=== PATIENT | female | born 1955 | race Caucasian/White ===

== ENCOUNTER 2020-12-05 14:59 | Outpatient (CLI) | payer OTHER, SELFPAY ==
[2020-12-05 15:58] LABS: #Basophils 0.1 10x3/uL (0.0-0.2); #Eosinphils 0.1 10x3/uL (0.0-0.5); #Monocytes 0.5 10x3/uL (0.0-1.1); #Neutrophils 2.4 10x3/uL (1.5-8.4); %Basophils 1.2 % (0.0-2.0); %Eosinophils 1.8 % (0.0-6.0); %Lymphocytes 37.2 % (18.0-47.0); %Monocytes 11.1 % (0.0-10.0); %Neutrophils 48.5 % (40.0-75.0); Hemoglobin 11.1 g/dL (12.0-15.5); Mean Corpuscular HGB CONC 32.2 g/dL (32.0-36.0); Mean Corpuscular Hemoglobin 28.5 pg (27.0-33.0); Mean Corpuscular Volume 88.5 fl (81.6-98.3); Mean Platelet Volume 9.9 fl (7.4-10.4); Platelet Count 355 10x3/uL (150-450); RBC Distribution Width 14.3 % (11.5-14.5); White Blood Cell (WBC) Count 4.9 10x3/uL (3.5-10.5)
[2020-12-05 16:07] LABS: Anion Gap 12 mmol/L (10-20); BUN (Urea Nitrogen) 24 mg/dL (9.8-20.1); Calc. Creatinine Clearance 0 mL/min (70-130); Calcium 9.8 mg/dL (7.8-10.44); Carbon Dioxide 24 mmol/L (23-31); Chloride 106 mmol/L (98-107); Glucose 124 mg/dL (80-115); Potassium 4.1 mmol/L (3.5-5.1); Sodium 138 mmol/L (136-145)
[2020-12-05 17:05] LABS: INR-International Normal Ratio 0.9
[2020-12-06 01:00] LABS: SARS-CoV-2 PCR by NAA Not Detected (NotDetected)
== END 2020-12-05 15:00 | disposition home or self-care (01) ==
LOC: LABBT 14:59
PROVIDERS: ATTEND Orthopaedic Surgery
DX: Z01.818 Encounter for other preprocedural examination (principal); M17.12 Unilateral primary osteoarthritis, left knee; Z20.822 Contact with and (suspected) exposure to COVID-19
CPT/HCPCS: 80048; 85025; 85610; 87081; 87635; 93005; 93010; U0003; U0005

== ENCOUNTER 2020-12-05 15:00 | Inpatient (IN) | payer OTHER ==
[2020-12-04 12:59] VITALS: BMI 30.9
[2020-12-09] MEDS ORDERED: Vancomycin 1 GM in Premix Bag 1 BAG IVPB SCH ×2 (07:30→21:00)
[2020-12-09] MEDS ORDERED: Tranexamic Acid 1,000 MG/10 ML VIAL ONE (07:38)
[2020-12-09] MEDS ORDERED: Sodium Chloride 0.9% 100 ML ONE (07:38)
[2020-12-09] MEDS ORDERED: Midazolam HCl 2 mg/2 ml Vial ONE (08:07)
[2020-12-09] MEDS ORDERED: Fentanyl 100 MCG/2 ML VIAL ONE ×4 (08:07→11:54)
[2020-12-09] MEDS ORDERED: Fentanyl 100 MCG/2 ML VIAL IV PRN (08:22)
[2020-12-09] MEDS ORDERED: Ondansetron PF 4 MG/2 ML Vial IVP PRN (08:30)
[2020-12-09] MEDS ORDERED: Zolpidem Tartrate 5 MG TAB PO PRN ×2 (08:30→13:50)
[2020-12-09] MEDS ORDERED: HYDROcodone/Acetaminophen 10/325 mg Tablet PO PRN (08:30)
[2020-12-09] MEDS ORDERED: traMADol HCl 50 MG TAB PO PRN (08:30)
[2020-12-09] MEDS ORDERED: Promethazine HCl 25 MG/ML VIAL IM PRN ×2 (08:30→09:36)
[2020-12-09] MEDS ORDERED: Ropivacaine HCl/PF 250 ML in Premix Bag 1 BAG NERVE BLCK SCH (08:30)
[2020-12-09] MEDS ORDERED: EPINEPHrine 1 MG/ML AMP ONE (09:29)
[2020-12-09] MEDS ORDERED: Bupivacaine 0.25% HCL 30 ML VIAL ONE (09:29)
[2020-12-09] MEDS ORDERED: Promethazine HCl 25 MG/ML VIAL SLOW IVP PRN (09:36)
[2020-12-09] MEDS ORDERED: Ondansetron HCl/PF 4 MG/2 ML Vial IVP PRN (09:36)
[2020-12-09] MEDS ORDERED: Lidocaine 1% PF 5 ML VIAL ONE (09:58)
[2020-12-09] MEDS ORDERED: Ropivacaine 2% HCl/PF (20 MG/10 ML VIAL) ONE (09:58)
[2020-12-09] MEDS ORDERED: PROPOFOL 200 MG/20 ML VIAL ONE (09:58)
[2020-12-09] MEDS ORDERED: Dexamethasone 20 MG/5 ML VIAL ONE (09:58)
[2020-12-09] MEDS ORDERED: Ketorolac Tromethamine 30 MG/ML VIAL ONE (09:58)
[2020-12-09] MEDS ORDERED: Ropivacaine 0.5% HCl/PF (150 MG/30 ML VIAL) ONE (09:58)
[2020-12-09] MEDS ORDERED: Ondansetron PF 4 MG/2 ML Vial ONE (09:58)
[2020-12-09] MEDS ORDERED: ePHEDrine Sulfate 50 MG/10 ML VIAL ONE (09:58)
[2020-12-09] MEDS ORDERED: Ketorolac Tromethamine 30 MG/ML VIAL IVP SCH (12:00)
[2020-12-09] MEDS ORDERED: Acetaminophen 325 MG TAB PO PRN (13:50)
[2020-12-09] MEDS ORDERED: Ketorolac Tromethamine 30 MG/ML VIAL IVP PRN (13:50)
[2020-12-09] MEDS ORDERED: diphenhydrAMINE 25 MG CAP PO PRN (13:50)
[2020-12-09] MEDS: CEFAZOLIN 2 GM in Premix Bag 1 BAG IVPB SCH (17:20)
[2020-12-09] MEDS: HYDROcodone/Acetaminophen 10/325 mg Tablet PO PRN ×2 (18:36→22:35)
[2020-12-09] MEDS: Sodium Chloride 0.9% 1,000 ML IV SCH (19:28)
[2020-12-09] MEDS: Ferrous Gluconate 324 MG TAB PO SCH (20:01)
[2020-12-09] MEDS: Senokot S 8.6-50 MG TAB PO SCH (20:01)
[2020-12-09] MEDS: rOPINIRole HCl 1 MG TAB PO SCH (20:43)
[2020-12-09] MEDS: Aspirin 81 mg Enteric Coated Tablet PO SCH (20:43)
[2020-12-09] MEDS: traMADol HCl 50 MG TAB PO PRN (20:48)
[2020-12-10] MEDS: CEFAZOLIN 2 GM in Premix Bag 1 BAG IVPB SCH (00:05)
[2020-12-10] MEDS: Sodium Chloride 0.9% 1,000 ML IV SCH ×4 (01:24→21:51)
[2020-12-10] MEDS: HYDROcodone/Acetaminophen 10/325 mg Tablet PO PRN ×6 (02:56→23:51)
[2020-12-10 05:39] LABS: Hemoglobin 9.5 g/dL (12.0-16.0); Mean Corpuscular HGB CONC 32.9 g/dL (32.0-36.0); Mean Corpuscular Hemoglobin 29.9 pg (27.0-31.0); Mean Corpuscular Volume 90.9 fL (78.0-98.0); Mean Platelet Volume 7.3 fL (7.4-10.4); Platelet Count 282 thou/uL (130-400); RBC Distribution Width 12.7 % (11.5-14.5); Red Blood Cell (RBC) Count 3.17 mill/uL (4.20-5.40); White Blood Cell (WBC) Count 11.8 thou/uL (4.8-10.8)
[2020-12-10] MEDS: Senokot S 8.6-50 MG TAB PO SCH ×2 (07:22→20:31)
[2020-12-10] MEDS: metFORMIN 500 MG TAB PO SCH (07:23)
[2020-12-10] MEDS: Atorvastatin Calcium 40 MG TAB PO SCH (07:23)
[2020-12-10] MEDS: Aspirin 81 mg Enteric Coated Tablet PO SCH ×2 (07:23→20:31)
[2020-12-10] MEDS ORDERED: CITRATE PO SCH (09:00)
[2020-12-10] MEDS ORDERED: MAGNESIUM CARB PO SCH (09:00)
[2020-12-10] MEDS ORDERED: ZINC ACETATE 25 MG PO SCH (09:00)
[2020-12-10] MEDS ORDERED: [UNRECOGNIZED DRUG - OTHER] PO SCH (09:00)
[2020-12-10] MEDS ORDERED: Multivitamin W/ Minerals 1 TAB PO SCH (09:00)
[2020-12-10] MEDS: Cholecalciferol 1,000 UNITS (25 MCG) TAB PO SCH (10:59)
[2020-12-10] MEDS: Ascorbic Acid 500 mg Chewable Tablet PO SCH (10:59)
[2020-12-10] MEDS: Lisinopril/Hydrochlorothiazide 10 mg/12.5 mg Tablet PO SCH (11:02)
[2020-12-10] MEDS: Multivitamin W/ Minerals 1 TAB PO SCH (11:02)
[2020-12-10] MEDS: Ferrous Gluconate 324 MG TAB PO SCH ×2 (13:12→20:31)
[2020-12-10] MEDS: Fenofibrate Nanocrystallized 145 MG TAB PO SCH (13:12)
[2020-12-10] MEDS: rOPINIRole HCl 1 MG TAB PO SCH (20:31)
[2020-12-11] MEDS: HYDROcodone/Acetaminophen 10/325 mg Tablet PO PRN ×3 (04:49→13:56)
[2020-12-11 05:16] LABS: Hemoglobin 9.7 g/dL (12.0-16.0); Mean Corpuscular HGB CONC 32.8 g/dL (32.0-36.0); Mean Corpuscular Hemoglobin 29.8 pg (27.0-31.0); Mean Corpuscular Volume 90.6 fL (78.0-98.0); Mean Platelet Volume 7.2 fL (7.4-10.4); Platelet Count 269 thou/uL (130-400); RBC Distribution Width 12.9 % (11.5-14.5); Red Blood Cell (RBC) Count 3.25 mill/uL (4.20-5.40); White Blood Cell (WBC) Count 10.1 thou/uL (4.8-10.8)
[2020-12-11] MEDS: Multivitamin W/ Minerals 1 TAB PO SCH (08:08)
[2020-12-11] MEDS: Cholecalciferol 1,000 UNITS (25 MCG) TAB PO SCH (08:08)
[2020-12-11] MEDS: metFORMIN 500 MG TAB PO SCH (08:08)
[2020-12-11] MEDS: Fenofibrate Nanocrystallized 145 MG TAB PO SCH (08:08)
[2020-12-11] MEDS: Aspirin 81 mg Enteric Coated Tablet PO SCH (08:08)
[2020-12-11] MEDS: Ascorbic Acid 500 mg Chewable Tablet PO SCH (08:08)
[2020-12-11] MEDS: Atorvastatin Calcium 40 MG TAB PO SCH (08:08)
[2020-12-11] MEDS: Lisinopril/Hydrochlorothiazide 10 mg/12.5 mg Tablet PO SCH (08:08)
[2020-12-11] MEDS: Ferrous Gluconate 324 MG TAB PO SCH (08:08)
[2020-12-11] MEDS: Senokot S 8.6-50 MG TAB PO SCH (08:08)
[2020-12-11] MEDS: traMADol HCl 50 MG TAB PO PRN (08:12)
[2020-12-11 11:57] VITALS: BP 111/64; TEMP 98.3
== END 2020-12-11 14:15 | disposition home or self-care (01) | DRG 470 ==
LOC: SURG A 12-09 07:10 → EDSTATUS 12-09 15:00
PROVIDERS: ADMIT Orthopaedic Surgery; ATTEND Orthopaedic Surgery
PROC: 0SRD0J9 Replacement of Left Knee Joint with Synthetic Substitute, Cemented, Open Approach (ICD-10-PCS; principal; 2020-12-09)
DX: M17.12 Unilateral primary osteoarthritis, left knee (principal); E78.5 Hyperlipidemia, unspecified; E11.9 Type 2 diabetes mellitus without complications; I10 Essential (primary) hypertension; G47.33 Obstructive sleep apnea (adult) (pediatric); G25.81 Restless legs syndrome; Z20.822 Contact with and (suspected) exposure to COVID-19; Z90.49 Acquired absence of other specified parts of digestive tract; Z90.710 Acquired absence of both cervix and uterus; Z98.890 Other specified postprocedural states; Z79.82 Long term (current) use of aspirin; Z79.84 Long term (current) use of oral hypoglycemic drugs; Z79.899 Other long term (current) drug therapy
CPT/HCPCS: 36415; 85027; C1713; C1776; J0171; J0690; J1100; J1885; J2250; J2405; J2704; J2795; J3010; J3370; J3490; S0020

== ENCOUNTER 2022-06-01 08:34 | Outpatient (CLI) | payer BC | END 2022-06-01 08:35 | disposition home or self-care (01) | LOC: BICULT 08:34 | PROVIDERS: ATTEND Registered Nurse | DX: N17.9 Acute kidney failure, unspecified (principal); N18.31 Chronic kidney disease, stage 3a | CPT/HCPCS: 76770 ==

== ENCOUNTER 2024-01-06 10:13 | Outpatient (CLI) | payer BC ==
[2024-01-06 11:28] LABS: #Basophils 0.06 10x3/uL (0.0-0.2); #Eosinphils 0.11 10x3/uL (0.0-0.5); #Monocytes 0.57 10x3/uL (0.0-1.1); #Neutrophils 2.06 10x3/uL (1.5-8.4); %Basophils 1.3 % (0.0-2.0); %Eosinophils 2.5 % (0.0-6.0); %Monocytes 12.8 % (0.0-10.0); %Neutrophils 46.2 % (40.0-75.0); Hematocrit 34.4 % (34.9-44.5); Hemoglobin 11.5 g/dL (12.0-15.5); Mean Corpuscular HGB CONC 33.4 g/dL (32.0-36.0); Mean Corpuscular Hemoglobin 29.2 pg (27.0-33.0); Mean Corpuscular Volume 87.3 fL (81.6-98.3); Mean Platelet Volume 9.7 fL (7.4-10.4); Platelet Count 331 10x3/uL (150-450); RBC Distribution Width 14.4 % (11.5-14.5); Red Blood Cell (RBC) Count 3.94 10x6/uL (3.90-5.03); White Blood Cell (WBC) Count 4.5 10x3/uL (3.5-10.5)
[2024-01-06 12:39] LABS: Anion Gap 13 mmol/L (10-20); BUN (Urea Nitrogen) 42 mg/dL (9.8-20.1); Calc. Creatinine Clearance 0 mL/min (70-130); Calcium 9.8 mg/dL (7.8-10.44); Carbon Dioxide 24 mmol/L (23-31); Chloride 99 mmol/L (98-107); Estimated GFR 34; Glucose 86 mg/dL (80-115); Potassium 4.3 mmol/L (3.5-5.1); Sodium 132 mmol/L (136-145)
== END 2024-01-06 10:14 | disposition home or self-care (01) ==
LOC: LABBT 10:13
PROVIDERS: ATTEND Orthopaedic Surgery Hand Surgery
DX: Z01.818 Encounter for other preprocedural examination (principal); S63.8X1A Sprain of other part of right wrist and hand, initial encounter; S63.591A Other specified sprain of right wrist, initial encounter
CPT/HCPCS: 80048; 85025; 93005; 93010

== ENCOUNTER → 2024-01-10 | Day surgery (SDC) | payer BC ==
[2024-01-06 10:34] VITALS: BMI 29.2
[~2024-01-10] MED LIST: Bacitracin Zinc Ointment 30 gm TUBE ONE; Betamet Acet/Betamet Na Ph 30 MG/5 ML VIAL ONE; Bupivacaine PF 0.5% 30 ML VIAL ONE; CEFAZOLIN 2 GM VIAL ONE; Dexamethasone 20 MG/5 ML VIAL ONE; EPINEPHrine 1 MG/ML VIAL ONE; Ketorolac Tromethamine 30 MG (1 mL) VIAL ONE; Lidocaine 1% PF 5 ML VIAL ONE; Midazolam HCl 2 mg/2 ml Vial ONE; Ondansetron PF 4 MG/2 ML Vial ONE; PHENYLEPHRINE-NS 100 MCG/ML 10 ML SYRINGE ONE; PROPOFOL 20 ML ONE; Ropivacaine 0.5% HCl/PF (150 MG/30 ML VIAL) ONE; Sodium Chloride 0.9% 100 ML ONE; ePHEDrine Sulfate 50 MG/10 ML VIAL ONE; fentaNYL 50 mcg/mL 1 mL Vial ONE
== END ==
LOC: SDC 09:00
PROVIDERS: ATTEND Orthopaedic Surgery Hand Surgery
PROC: 0LT50ZZ Resection of Right Lower Arm and Wrist Tendon, Open Approach (ICD-10-PCS; principal; 2024-01-10)
PROC: 0MQ54ZZ Repair Right Wrist Bursa and Ligament, Percutaneous Endoscopic Approach (ICD-10-PCS; principal; 2024-01-10)
DX: S63.591A Other specified sprain of right wrist, initial encounter (principal); S63.8X1A Sprain of other part of right wrist and hand, initial encounter; M65.831 Other synovitis and tenosynovitis, right forearm; M67.833 Other specified disorders of tendon, right wrist; D76.1 Hemophagocytic lymphohistiocytosis; I12.9 Hypertensive chronic kidney disease with stage 1 through stage 4 chronic kidney disease, or unspecified chronic kidney disease; N18.9 Chronic kidney disease, unspecified; E78.5 Hyperlipidemia, unspecified; G25.81 Restless legs syndrome; G47.33 Obstructive sleep apnea (adult) (pediatric); E55.9 Vitamin D deficiency, unspecified; Z90.710 Acquired absence of both cervix and uterus; Z79.899 Other long term (current) drug therapy; Z79.82 Long term (current) use of aspirin
CPT/HCPCS: 36416; 88304; A6223; C1713; J0171; J0665; J0702; J1100; J1885; J2250; J2405; J2704; J2795; J3010; J3490

== ENCOUNTER 2024-05-07 09:21 | Outpatient (CLI) | payer BC | END 2024-05-07 09:22 | disposition home or self-care (01) | LOC: BICRAD 09:21 | PROVIDERS: ATTEND Registered Nurse | DX: M54.2 Cervicalgia (principal); M25.512 Pain in left shoulder; M47.812 Spondylosis without myelopathy or radiculopathy, cervical region | CPT/HCPCS: 72052 ==

== ENCOUNTER 2025-02-21 07:56 | Outpatient (CLI) | payer MEDICARE, OTHER | END 2025-02-21 07:57 | disposition home or self-care (01) | LOC: BICMAMMO 07:56 | PROVIDERS: ATTEND Registered Nurse | DX: Z78.0 Asymptomatic menopausal state (principal) | CPT/HCPCS: 77080 ==